=== PATIENT | female | born 1955 | race Caucasian/White ===

== ENCOUNTER 2024-05-08 01:38 | Inpatient (IN) | payer OTHER, MEDICAID ==
[~2024-05-08] VITALS: Ht 162.6 cm; Wt 99.8 kg
[2024-05-08 02:31] LABS: BASOPHILS % 1.2 % (0.0-2.0); DIFFERENTIAL COMMENT 0; HEMATOCRIT. 31.7 % (36.0-48.0); HEMOGLOBIN. 10.6 g/dL (12.0-16.0); LYMPHOCYTES % 26.4 % (20.0-50.0); MEAN CORPUSCULAR HEMOGLOBIN 32.6 pg (28.0-32.0); MEAN CORPUSCULAR HGB CONC 33.6 g/dL (31.0-37.0); MEAN CORPUSCULAR VOLUME 96.9 fL (81.0-99.0); MEAN PLATELET VOLUME 11.5 fl (7.4-10.4); MONOCYTES % 14.7 % (2.0-8.0); NEUTROPHILS % 54.7 % (40.0-76.0); PLATELET 60 x1000/uL (130-400); RED BLOOD CELL COUNT 3.27 mill/uL (4.2-5.4); RED CELL DISTRIBUTION WIDTH 17.5 % (11.6-14.6); WHITE BLOOD COUNT 4.2 x1000/uL (4.5-11.0)
[2024-05-08 02:40] LABS: INR 1.6; PARTIAL THROMBOPLASTIN TIME 36.7 sec (23.4-31.0)
[2024-05-08 02:47] LABS: CHLORIDE 113 mEq/L (98-107); POTASSIUM 4.7 mEq/L (3.5-5.1); SODIUM 141 mEq/L (136-145)
[2024-05-08 02:49] LABS: CALCIUM 8.1 mg/dL (8.7-10.4); CARBON DIOXIDE 23 mEq/L (21-32)
[2024-05-08 02:53] LABS: GLUCOSE 118 mg/dL (70-105); TROPONIN I HIGH SENSITIVITY 5 ng/L (3.0-34)
[2024-05-08 02:54] LABS: CREATININE 0.8 mg/dL (0.6-1.0); UREA NITROGEN BLOOD 11 mg/dL (9-23)
[2024-05-08 02:55] LABS: ACETAMINOPHEN < 2 ug/mL (10-30)
[2024-05-08 02:56] LABS: ETHANOL BLOOD < 10 mg/dL (<10)
[2024-05-08 04:12] LABS: AMMONIA 217 uMol/L (<32)
[2024-05-08 04:16] LABS: ALANINE AMINOTRANSFERASE 20 IU/L (10-49); ALBUMIN 1.9 g/dL (3.2-4.8); ASPARTATE AMINOTRANSFERASE 38 IU/L (<34); BILIRUBIN DIRECT 2.3 mg/dL (<=3.0); PROTEIN TOTAL 5.6 g/dL (6.0-8.3)
[2024-05-08] MEDS: LACTULOSE 20G/30ML UDC PO NR (04:40)
[2024-05-08] MEDS ORDERED: LACT-390 MT (05:27)
[2024-05-08] MEDS ORDERED: ACETAMINOPHEN 325MG TABLET PO PRN (11:15)
[2024-05-08] MEDS: FUROSEMIDE 40MG TABLET PO SCH (11:51)
[2024-05-08] MEDS: LACTULOSE 20G/30ML UDC PO SCH (14:20)
[2024-05-08 16:00] VITALS: BP 146/70; PULSE 47; RESP 21; TEMP 36.8; O2SAT 92
[2024-05-08 16:18] VITALS: BP 140/84; PULSE 76; RESP 18; TEMP 37
[2024-05-08 16:59] VITALS: BP 152/94; PULSE 83; RESP 18; TEMP 36.6; O2SAT 98
[2024-05-08 20:00] VITALS: BP 144/71; PULSE 77; RESP 18; TEMP 36.4; O2SAT 100
[2024-05-09] VITALS: BP 122/87; PULSE 89; RESP 18; TEMP 36.3; O2SAT 99
[2024-05-09 04:00] VITALS: BP 132/49; PULSE 75; RESP 18; TEMP 36.3; O2SAT 100
[2024-05-09 05:49] LABS: AMMONIA 101 uMol/L (<32)
[2024-05-09 08:00] VITALS: BP 136/51; PULSE 73; RESP 16; TEMP 36.5; O2SAT 100
[2024-05-09] MEDS: SPIRONOLACTONE 25MG TABLET PO SCH (09:46)
[2024-05-09 11:58] VITALS: BP 154/74; PULSE 101; RESP 18; TEMP 36.5; O2SAT 100
[2024-05-09] MEDS ORDERED: FURO20TA4 PO (13:40)
[2024-05-09] MEDS ORDERED: RIFA550T PO (13:44)
[2024-05-09] MEDS ORDERED: NADO20TA33 PO (13:44)
[2024-05-09] MEDS ORDERED: ALD50 PO (13:44)
[2024-05-09] MEDS ORDERED: LACT10SO7 PO (13:45)
[2024-05-09] MEDS: ONDANSETRON HCL 4MG/2ML INJ IV PRN (15:10)
[2024-05-09 16:00] VITALS: BP 126/56; PULSE 77; RESP 16; TEMP 36.7; O2SAT 100
[2024-05-09 20:00] VITALS: BP 146/74; PULSE 77; RESP 20; TEMP 36.4; O2SAT 100
[2024-05-09] MEDS: METOPROLOL TARTRATE 25MG TABLET PO SCH (21:22)
[2024-05-10] VITALS: BP 119/51; PULSE 71; RESP 20; TEMP 36.4; O2SAT 99
[2024-05-10 04:00] VITALS: BP 148/68; PULSE 76; RESP 20; TEMP 36.4; O2SAT 98
[2024-05-10 08:00] VITALS: BP 132/49; PULSE 70; RESP 20; TEMP 36.7; O2SAT 98
[2024-05-10 12:00] VITALS: BP 113/57; PULSE 69; RESP 16; TEMP 36.9; O2SAT 100
[2024-05-10 16:01] VITALS: BP 122/79; PULSE 87; TEMP 98.1; O2SAT 100
[2024-05-10 16:14] VITALS: BP 113/57; PULSE 69; TEMP 98.4; O2SAT 100
== END 2024-05-10 16:37 | disposition home or self-care (01) | DRG 441 ==
LOC: ER 01:38 → 7EST 06:21 → EDBEDREQ 08:40 → EDBEDREQTM 08:40 → EDBEDREQSVC 14:31
PROVIDERS: ADMIT Internal Medicine; ATTEND Internal Medicine
DX: K76.82 Hepatic encephalopathy (principal); E43 Unspecified severe protein-calorie malnutrition; D61.818 Other pancytopenia; K74.60 Unspecified cirrhosis of liver; I50.9 Heart failure, unspecified; E66.9 Obesity, unspecified; Z91.199 Patient's noncompliance with other medical treatment and regimen due to unspecified reason; Z79.899 Other long term (current) drug therapy; Z68.37 Body mass index [BMI] 37.0-37.9, adult
CPT/HCPCS: 36415; 71045; 80048; 80076; 80307; 80320; 80329; 82140; 83880; 84484; 85025; 93005; 93970; 97161; 99285; J2405; G0480